=== PATIENT | female | born 1935 | race Caucasian/White ===

== ENCOUNTER 2019-09-15 12:22 | Outpatient (CLI) | payer MEDICARE, SELFPAY ==
--- NOTE | 2019-09-17 13:12 | WPDSIXMINUTE ---
Six Minute Walk Six Minute Walk: The patients O2 sats started at 91% improved to 95% during testing Total walk distance 900 feet conclusion: This patient would not benefit from home oxygen therapy
--- NOTE | 2019-09-20 21:09 | WPDSIXMINUTE ---
Six Minute Walk DATE OF SERVICE: 09/15/2019 REQUESTING PHYSICIAN: Citlali Villegas MD REASON FOR TESTING: Exertional dyspnea SIX MINUTE WALK This test was conducted per ATS guidelines. Initial saturation was 91% and pulse was 82. Saturation remained 91 to 94% while walking and increased to 96% during recovery. Pulse increased to 137 beats per minute. Distance walked was 900 feet, 274 meters. She stopped once to rest for 30 seconds. Ending heart rate was 103. IMPRESSION: No supplemental oxygen required with exertion. Heart rate remained elevated at the end of recovery. Distance walked is less than expected for age. Citlali Villegas MD
== END 2019-09-15 12:23 | disposition home or self-care (01) ==
PROVIDERS: PCP Internal Medicine; Visit Provider Internal Medicine Critical Care Medicine
DX: R06.02 Shortness of breath (principal)
CPT/HCPCS: 94618

== ENCOUNTER 2019-09-26 09:08 | Outpatient (CLI) | payer MEDICARE, SELFPAY ==
--- NOTE | 2019-10-03 02:25 | SLEEP_ITS ---
Basic Nocturnal Polysomnogram DATE OF STUDY: 09/26/2019 REASON FOR THIS STUDY: Hypersomnolence. HISTORY: This patient is an 84-year-old female, 69 inches tall, weighing 180 pounds with a body mass index of 26.6. She has sleep complaints including light sleeping, nonrestorative sleep. She wakes up frequently throughout the night. This is moderately severe and it has been going on for several years. She has a family history of sleep apnea with her daughter and son both having this. She rarely snores. She rarely has breathing problems at night witnessed by others. She occasionally sweats excessively at night. She constantly notices her heart pounding irregularly at night. She feels this mainly in her left ear, both during the day and at night. She frequently falls asleep during the day and takes power naps. She rarely falls asleep involuntarily. She does not fall asleep while driving or during physical effort. She rarely has loss of muscle tone with strong emotion. She does not have trouble during the daytime due to excessive sleepiness. She does not have paralysis on waking or falling asleep. She does not have vivid dreamlike scenes upon awakening or falling asleep. She is never afraid to go to sleep. She rarely has nightmares. She occasionally remembers her dreams. She frequently has racing thoughts. She rarely has sadness, depression, or anxiety. She frequently has muscular tension, notices parts of her body jerking occasionally, rarely kicks at night. She frequently has crawly achy feelings in the legs. She frequently has leg pain at night. She rarely has morning jaw pain. She does not grind her teeth at night. She constantly is bothered by pain during the day, frequently is awakened by pain at night, constantly wakes up feeling stiff in the morning with sore achy muscles and pain in the neck and spine. She has occasional dizziness, stomach problems, fatigue, memory problems, headaches. Bedtime is 10:30 p.m., taking 15 minutes or sometimes hours to fall asleep, typically waking 3 to 4 times at night for anywhere between 5 and 10 minutes. During this time, she use the bathroom and sometimes will go to the kitchen. She wakes up in the morning between 6 a.m. and 6:30 a.m. She estimates that she has 5 to 6 hours of sleep at night. She does take naps. A short nap is sometimes refreshing. She is tired in the morning for an hour. MEDICAL COMORBIDITIES: 1. Arthritis. 2. Pulmonary hypertension. 3. Moderate aortic regurgitation. 4. Mild emphysema. 5. Mild bronchiectasis. 6. Essential hypertension. 7. Gastroesophageal reflux disease without esophagitis. MEDICATIONS: 1. Vitamin C 1 tablet daily. 2. Levothyroxine 25 mcg daily. 3. Omeprazole 40 mg a day. 4. Lactobacillus 1 capsule daily. 5. Acetaminophen 325 one q.6 hours p.r.n. pain. 6. Acyclovir 400 mg daily. 7. Symbicort 80 mcg/4.5, 2 puffs twice a day. 8. Vitamin D3 at 1000 units daily. 9. Vitamin B12 one capsule daily. 10. Docusate 100 mg daily. 11. Nitroglycerin 0.4 mg sublingually p.r.n. chest pain. HABITS: Never smoked tobacco. Caffeine, 1 cup of coffee or 1 Coke daily. No alcohol or recreational drugs. DESCRIPTION OF THE STUDY: On the Terrell Sleepiness Scale, her score is 7. This was conducted as a basic nocturnal polysomnogram using the [employer] multiple channel system including EOG, EEG, submental EMG, EKG, nasal and oral airflow using thermistors and nasal pressure sensors, chest and abdominal belts, body position data and pulse oximetry. The study was scored using [facility] guidelines. Duration of the study was 405 minutes. Sleep time was 249.5 minutes. Sleep efficiency was low at 61.6%. Sleep latency was 16.7 minutes. REM latency was 174.5 minutes. There were 27 awakenings and she spen
== END 2019-09-26 09:09 | disposition home or self-care (01) ==
LOC: ANHCSM 09:09
PROVIDERS: PCP Internal Medicine; Visit Provider Internal Medicine Critical Care Medicine
DX: G47.10 Hypersomnia, unspecified (principal)
CPT/HCPCS: 95810

== ENCOUNTER 2019-10-21 12:50 | Outpatient (CLI) | payer MEDICARE, SELFPAY ==
--- NOTE | ~2019-10-21 | XR_ITS ---
EXAMINATION: XR lg joint inject/asp w image DATE: 10/21/2019 13:47 INDICATION: Left shoulder osteoarthritis. TECHNIQUE: A time-out was performed to verify the patient's name, date of , and procedure to b e performed. The procedure including the risks, benefits, and alternatives was discussed with the pat ient. Risks discussed included bleeding and infection. The patient understood the risks and agreed to proceed. The skin overlying the left glenohumeral joint was prepped and draped in usual sterile fas hion. Anesthetic was administered with 1% lidocaine subcutaneously. A 22 G needle was advanced unde r fluoroscopic guidance into the joint. Injection of 1 mL of Omnipaque 240 confirmed intra-articular position of the needle. Subsequently, injectate consisting of 3 mL 1% lidocaine and 1 mL 80 mg/mL D epo-Medrol was instilled. The needle was removed and the entry site was cleaned and dressed. There were no immediate complications. Fluoroscopy exposure time was 0.1 minutes. The total number of image s was 1. FINDINGS: Real-time fluoroscopy demonstrates the needle in the left glenohumeral joint. Patient's stella n prior to procedure:8/10. Patient's pain following the procedure: 0/10. IMPRESSION: 1. Left glenohumeral joint injection of local anesthetic and steroid with decrease in the patient's p resenting pain. Reviewed, dictated and finalized at location A. PROPRIETOR IMPRESSION: 1. Left glenohumeral joint injection of local anesthetic and steroid with decre ase in the patient's presenting pain.
== END 2019-10-21 12:51 | disposition home or self-care (01) ==
PROVIDERS: PCP Internal Medicine; Visit Provider Orthopaedic Surgery
DX: M13.812 Other specified arthritis, left shoulder (principal)
CPT/HCPCS: 20610; 77002; J1040; Q9966

== ENCOUNTER → 2020-03-05 12:25 | Outpatient (CLI) | payer MEDICARE, SELFPAY ==
--- NOTE | ~2020-03-05 | MM_ITS ---
EXAMINATION: MM screening [facility] BI w jocelyn HISTORY: Screening mammogram TECHNIQUE: Craniocaudal and mediolateral oblique 3-D tomosynthesis images were obtained and synthetic 2-D images were generated. CAD analysis was submitted and interpreted. COMPARISON: 09/11/2017, 05/28/2016, 09/21/2014, 09/19/1949 BREAST PARENCHYMAL COMPOSITION: There are scattered areas of fibroglandular density. FINDINGS: Scattered benign-appearing calcifications are present. There is no evidence of suspicious m ass, calcification, or architectural distortion to suggest malignancy in either breast. There has bee n no suspicious interval change. IMPRESSION: 1. No mammographic evidence of malignancy. 2. Recommend routine screening mammography while the patient remains in good health. BI-RADS Category 2: Benign finding(s). Reviewed, dictated and finalized at location A. IMPRESSION: 1. No mammographic evidence of malignancy. 2. Recommend routine screening mammography while the patient remains in good he alth. BI-RADS Category 2: Benign finding(s).
== END ==
PROVIDERS: PCP Internal Medicine; Visit Provider Internal Medicine
DX: Z12.31 Encounter for screening mammogram for malignant neoplasm of breast (principal)
CPT/HCPCS: 77063; 77067

== ENCOUNTER 2020-10-08 08:51 | Outpatient (CLI) | payer MEDICARE, SELFPAY ==
--- NOTE | ~2020-10-08 | CT_ITS ---
EXAMINATION: CT diagnostic chest wo con DATE: 10/08/2020 09:09 INDICATION: Pulmonary hypertension, unspecified TECHNIQUE: Computed tomography (CT) of the chest was performed without intravenous contrast. The dose -length product (DLP) was 218.13 mGy-cm. Automated exposure control and iterative reconstruction tech [email or web address] were employed. COMPARISON: 06/20/2019 FINDINGS: There is mild emphysema. The lungs are free of acute opacities. There is no pleural effusio n or pneumothorax. There is enlargement of the main and central pulmonary arteries, consistent with p ulmonary hypertension. No pathologically enlarged thoracic lymph nodes are identified. The heart size is normal. Calcified coronary artery atherosclerosis is noted. There is mild thoracic spondylosis. T here is hydronephrosis of the partially imaged right kidney. IMPRESSION: 1. Findings consistent with pulmonary hypertension. 2. Mild emphysema. 3. Hydronephrosis of the partially imaged right kidney of unclear etiology. Reviewed, dictated and finalized at location A. UNITY LIAISON OFFICER
--- NOTE | 2020-10-15 12:45 | WPDPFTINT ---
PFT Interpretation This is a pulmonary function test with pre and post-bronchodilator spirometry, plethysmography and diffusing capacity. The test was performed and results interpreted in accordance with the 2019 and 2005 ATS/ERS Task Force guidelines respectively using the Cooper/Jovita reference equations. Findings: Spirometry: The contour the inspiratory and expiratory flow tracing are normal. The pre bronchodilator FVC is 3.07 L, 99% predicted. The pre bronchodilator FEV1 is 2.20 L, 103% predicted. The FEV1: FVC ratio is 72%. The post bronchodilator FVC is 2.98 L, representing a 3% decrease. The post bronchodilator FEV1 is 2.21 L, representing a 1% increase. Plethysmography: The total lung capacity is 5.97 L, 104% predicted. The forced vital capacity is 4.05 L, 128% predicted. The residual volume is 2.90 L, 118% predicted. Diffusing capacity the absolute diffusion capacity is 14.4, 67% predicted. The diffusing capacity corrected for alveolar volume is 3.91, 119% predicted. Impression: The spirometry is normal without evidence of an obstructive abnormality. There is no significant improvement after inhaling a single dose of albuterol. The lung volumes are normal. The diffusing capacity is normal. There are no prior studies for comparison
== END 2020-10-08 08:52 | disposition home or self-care (01) ==
PROVIDERS: PCP Internal Medicine; Visit Provider Nurse Practitioner Family
DX: I27.20 Pulmonary hypertension, unspecified (principal); J43.9 Emphysema, unspecified; R06.02 Shortness of breath
CPT/HCPCS: 71250; 94060; 94726; 94729

== ENCOUNTER 2020-10-15 09:51 | Outpatient (CLI) | payer MEDICARE, SELFPAY ==
[2020-10-15 10:24] LABS: Add Urine Microscopic? NO; Appearance Urine Clear (Clear); Bilirubin Urine Negative (Negative); Blood Urine Negative (Negative); Color Urine Colorless (Yellow); Glucose Urine UA Negative (Negative); Ketones Urine Negative (Negative); Leukocyte Esterase Ur Negative LEU/UL (NEGATIVE); Nitrate Urine Negative (Negative); Protein Urine Negative (Negative); Specific Grav Ur 1.005 (1.001-1.035); Urobilinogen Urine Negative mg/dL (<2.0)
== END 2020-10-15 09:52 | disposition home or self-care (01) ==
LOC: ANHLAB 09:54
PROVIDERS: PCP Internal Medicine; Visit Provider Physician Assistant
DX: R30.0 Dysuria (principal)
CPT/HCPCS: 81003; 87086

== ENCOUNTER → 2020-10-17 10:14 | Outpatient (CLI) | payer MEDICARE, SELFPAY ==
--- NOTE | ~2020-10-17 | CT_ITS ---
EXAMINATION: CT brain wo con EXAM DATE: 10/17/2020 10:53 INDICATION: Left-sided headache, left ear pain. TECHNIQUE: Spiral CT of the head was performed without contrast. Axial, coronal and sagittal images were reviewed. The dose-length product (DLP) for this examination was 599.57 mGy-cm. The exposure w as tailored according to patient size, and iterative reconstruction (ASIR) was used as additional dos e reduction technique. There is no prior study for comparison. FINDINGS: Diffuse sinus wall thickening indicating chronic sinusitis, with an air fluid in the left m axillary sinus and right sphenoid sinus. Anterior ethmoid sinuses, frontal sinuses and right maxillar y sinus appear completely opacified. Consider possibility of acute on chronic sinusitis. Mastoid air cells and middle ears are well aerated. Congenital cavum septum and cavum vergae. There is no acute intraparenchymal hemorrhage. No evidence of intraparenchymal brain mass lesion. No evidence of acute infarction. Please note that initial h ead CT has limited sensitivity for small or acute infarctions. 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 There is mild periventricular and subcortical hypodensity, nonspecific but probab ly related to small vessel ischemic disease. There is mild prominence of the sulci and ventricles r elated to cerebral atrophy. There is intracranial carotid arteriosclerosis. There are no extra-axi al collections. There is no mass effect or midline shift. Patient has had left-sided ocular lens fair rgery. Soft tissue is unremarkable. IMPRESSION: 1. No acute intracranial findings. 2. Chronic age related findings. 3. Extensive sinus disease, could be acute on chronic. Reviewed, dictated and finalized at location B. IFIED PEDORTHOTIST
--- NOTE | ~2020-10-17 | CT_ITS ---
EXAMINATION: CT abdomen pelvis w con DATE: 10/17/2020 10:53 INDICATION: Hydronephrosis TECHNIQUE: Computed tomography (CT) of the abdomen and pelvis was performed with 100 cc Omnipaque 350 intravenous contrast. Automated exposure control and iterative reconstruction technique were employe d. Exam dose: 857.08 mGy-cm total exam DLP. COMPARISON: 07/09/2011 CT abdomen pelvis FINDINGS: There is minimal bilateral lower lobe dependent atelectasis. No pulmonary consolidation in the lower lung zones. Heart size is within upper limits of normal. No pericardial or pleural effusion. Status post cholecystectomy, which may account for stable prominence of the intrahepatic and extrahep atic bile duct since 06/29/2011. No hepatic, splenic, pancreatic or adrenal space-occupying mass lesion. Scattered bilateral renal cysts, measuring up to approximately 11 mm maximal dimension on each side. There is moderate prominence of the extrarenal pelves bilaterally. No hydroureteronephrosis. There is extensive streak artifact from bilateral hip replacements, limiting evaluation of the urinar y bladder and other pelvic structures. Normal caliber of the abdominal aorta, without evidence of aneurysm. There is extensive abdominal aor tic and bilateral renal artery calcification. No intraperitoneal or retroperitoneal or pelvic mass le baltazar or adenopathy or ascites is evident within the limits the examination with the extensive streak artifact in the pelvic area. Small sliding hiatal hernia. There are numerous diverticula of the sigmoid and descending colon as well as ascending colon. No CT evidence of diverticulitis is noted. No bowel obstruction, bowel wall thickening, pneumatosis or intr aperitoneal free air is evident. Small fat-containing umbilical hernia. Status post hysterectomy. Severe multilevel degenerative disc disease of the lumbar spine. No suspicious osteolytic or osteoblastic lesions are noted. IMPRESSION: Moderate prominence of the renal pelves; no apparent urinary tract obstruction Bilateral renal cysts Status post cholecystectomy Status post hysterectomy Small sliding hiatal hernia Diverticulosis of left and right colon Reviewed, dictated and finalized at Location A. Reviewed, dictated and finalized at location A. R PLANT SUPERINTENDENT
[2020-10-17 10:38] LABS: Estimated Glomerular Filt Rate > 60
== END ==
PROVIDERS: PCP Internal Medicine; Visit Provider Physician Assistant
DX: N13.30 Unspecified hydronephrosis (principal); N28.1 Cyst of kidney, acquired; Z90.49 Acquired absence of other specified parts of digestive tract; K44.9 Diaphragmatic hernia without obstruction or gangrene; K57.30 Diverticulosis of large intestine without perforation or abscess without bleeding; R93.0 Abnormal findings on diagnostic imaging of skull and head, not elsewhere classified
CPT/HCPCS: 70450; 74177; Q9967

== ENCOUNTER 2020-11-27 09:30 | Outpatient (CLI) | payer MEDICARE, SELFPAY ==
--- NOTE | ~2020-11-27 | CT_ITS ---
EXAMINATION: CT sinus wo con EXAM DATE: 11/27/2020 09:42 INDICATION: R44.8 - Other symptoms and signs involving general sensations and perceptions. History of chronic sinusitis. TECHNIQUE: Spiral CT of the sinuses was acquired in the axial plane. Coronal and sagittal reformatte d images were also reviewed. The dose-length product (DLP) for this examination was 295.93 mGy-cm. Iterative reconstruction (ASIR) was used as dose reduction technique. Comparison is made to prior exa mination from 07/20/2017. FINDINGS: The sinuses are normally developed. Completely opacified right maxillary sinus from muco periosteal disease and also large amount of layering fluid. Smaller amount of left maxillary sinus fl uid. There is bilateral maxillary sinus wall thickening indicating this is chronic. Small amount of b ilateral frontal and sphenoid mucoperiosteal thickening, small to moderate in the ethmoid sinuses. Th ere may have been prior surgical changes from middle turbinectomies and ethmoidectomies. Overall, maurilio earance is not significantly changed compared to 2017. Uncertain whether or not there have been maxil yadiel sinus window procedures, but the apparent left ostiomeatal unit is patent. Wall thickening of th e sphenoid sinuses indicating a history of being chronically opacified. There is no significant nasal septal deviation. The mastoid air cells and middle ears are well aerated. External auditory canal s are patent. Left-sided cataract surgery. IMPRESSION: 1. Right maxillary sinus almost completely opacified, smaller amount of opacity in other sinuses. 2. No significant interval change. Reviewed, dictated and finalized at location A. IMPRESSION: 1. Right maxillary sinus almost completely opacified, smaller amount of opacit y in other sinuses. 2. No significant interval change.
== END 2020-11-27 09:31 | disposition home or self-care (01) ==
PROVIDERS: PCP Internal Medicine; Visit Provider Otolaryngology
DX: R44.8 Other symptoms and signs involving general sensations and perceptions (principal); J01.90 Acute sinusitis, unspecified
CPT/HCPCS: 70486

== ENCOUNTER 2021-01-04 21:16 | Emergency (ER) | payer MEDICARE, SELFPAY ==
--- NOTE | ~2021-01-04 | XR_ITS ---
XR lumbar spine min 4V DATE: 01/05/2021 00:19 INDICATION: Fall. Right and mid lower back pain TECHNIQUE: AP, lateral, coned lateral lumbosacral and bilateral oblique views COMPARISON: 09/12/2011 MRI lumbar spine examination FINDINGS: Diffuse osteopenia. Mild lumbar scoliosis. Moderately severe degenerative disease at L1 to and severe degenerative disc disease throughout the r emainder of the lumbar and sacral spine. No fracture or bone destruction is evident. There is degenerative change at the facet joints but no a pparent spondylolysis or spondylolisthesis. The sacroiliac joints are intact. IMPRESSION: Severe degenerative disc disease Osteopenia Scoliosis No fracture or bone destruction Reviewed, dictated and finalized at location A.
[2021-01-04 22:24] VITALS: BP 162/87; PULSE 109; RESP 12; TEMP 36.5; O2SAT 97
--- NOTE | 2021-01-05 01:53 | ED.GENADULT ---
HPI - General Adult General Chief complaint: Fall Stated complaint: Fall/Back Pain Time Seen by Provider: 01/05/21 01:38 History of Present Illness HPI narrative: Patient 85-year-old female presents to emergency department with chief complaint of right sided flank pain. Patient reports that she was adjusting some venetian blinds lost her footing and fell striking her right flank/low chest area against the frame of a bay window. The patient reports she had no loss of consciousness reports that she has pain in her posterior ribs and hurts whenever she takes a deep breath and when she moves around. The patient states she is concerned that she may have a rib fracture. The patient denies any focal neurological deficit denies any paresthesias denies bowel or bladder dysfunction. Patient reports that her back chronically hurts and is not any more than normal at this time the only location that is hurting is in her flank area. Related Data Home Medications Medication Instructions Recorded Confirmed ascorbic acid (vitamin C) 500 mg 500 mg PO DAILY 09/05/19 12/20/20 tablet Lactobacillus acidophilus 10 cell PO 09/06/19 12/20/20 billion cell capsule acetaminophen 325 mg tablet 325 mg PO Q6H PRN 09/06/19 12/20/20 acyclovir 400 mg tablet 400 mg PO DAILY 09/06/19 12/20/20 cholecalciferol (vitamin D3) 25 1,000 unit PO DAILY 09/06/19 12/20/20 mcg (1,000 unit) capsule cyanocobalamin (vitamin B-12) 500 500 mcg PO DAILY 09/06/19 12/20/20 mcg tablet nitroglycerin 0.4 mg sublingual 0.4 mg SUBLINGUAL Q5M PRN 09/06/19 12/20/20 tablet Allergies Allergy/AdvReac Type Severity Reaction Status Date / Time latex Allergy Severe RASH Verified 01/05/21 02:04 levofloxacin Allergy Intermediate stomach Verified 01/05/21 02:04 cramp cephalexin Allergy Unknown unk Verified 01/05/21 02:04 ciprofloxacin Allergy Unknown unk Verified 01/05/21 02:04 Review of Systems Review of Systems: Narrative: A 10 system review of systems was completed on the patient and is negative except for what is stated in the HPI. Nursing and ancillary documentation was reviewed. [facility] Past Medical History Medical History (Updated 01/05/21 @ 02:36 by Luis Thomas MD) Arthritis Essential (primary) hypertension Gastric erosion determined by endoscopy Gastro-esophageal reflux disease without esophagitis Surgical History Surgical History H/O: hysterectomy History of knee replacement History of sinus surgery Hx of cholecystectomy Family History Family History Mother Cerebrovascular accident, Onset Age: 86 Patient's mother is Father Diabetes mellitus Hypertension Heart disease Sibling Cancer Heart disease Cerebrovascular accident Other Cancer Grandparent Cancer Other Acute myocardial infarction Social History Social History Smoking status: Never smoker Second hand tobacco smoke exposure: No Alcohol intake: current Gender identity (if verbalized by the patient): Female Exam Narrative: Exam Narrative: GENERAL: Well-appearing, well-nourished, and in no acute distress. HEAD: Normocephalic, atraumatic. EYES: PERRLA and EOMI. ENT: Nares clear, no rhinorrhea or epistaxis. Mucous membranes moist. NECK: Supple. CHEST: Clear to auscultation. No respiratory distress. HEART: Regular rate and rhythm. No murmur heard. Normal peripheral pulses. ABDOMEN: Soft, nontender, nondistended, normal active bowel sounds. There is a small proximately 4 inch diameter area in the right flank area that shows evidence of contusion EXTREMITIES: Normal range of motion. No edema. SKIN: Warm, dry, no rash. NEURO: No focal deficits. Alert and oriented x3. PSYCH: Normal mood and affect. Course Vital Signs Vital signs: Vital Signs
[2021-01-05 02:01] VITALS: BP 147/67; PULSE 88; RESP 18; O2SAT 92
[2021-01-05] MEDS: HYDROcodone/acetaminophen (*CRX) 5-325 MG TABLET 1 TAB PO (02:06)
[2021-01-05 03:01] VITALS: BP 145/61; PULSE 83; RESP 17; O2SAT 95
== END 2021-01-05 03:03 | disposition home or self-care (01) ==
PROVIDERS: Emergency Provider Emergency Medicine; PCP Internal Medicine
DX: S20.211A Contusion of right front wall of thorax, initial encounter (principal); M19.90 Unspecified osteoarthritis, unspecified site; I10 Essential (primary) hypertension; K21.9 Gastro-esophageal reflux disease without esophagitis; Z96.659 Presence of unspecified artificial knee joint; K22.10 Ulcer of esophagus without bleeding; W01.198A Fall on same level from slipping, tripping and stumbling with subsequent striking against other object, initial encounter
CPT/HCPCS: 72110; 99283; A9270

== ENCOUNTER → 2021-04-26 15:35 | Outpatient (CLI) | payer MEDICARE, SELFPAY ==
--- NOTE | ~2021-04-26 | MM_ITS ---
EXAMINATION: MM screening [facility] BI w jocelyn HISTORY: Screening TECHNIQUE: Craniocaudal and mediolateral oblique 3-D tomosynthesis images were obtained and synthetic 2-D images were generated. CAD analysis was submitted and interpreted. COMPARISON: Comparison to multiple prior studies sequentially, with oldest reviewed study dated 12/2012. BREAST PARENCHYMAL COMPOSITION: There are scattered areas of fibroglandular density. FINDINGS: There is no evidence of suspicious mass, calcification, or architectural distortion to sugg est malignancy in either breast. There has been no suspicious interval change. IMPRESSION: 1. No mammographic evidence of malignancy. 2. Recommend routine screening mammography in one year. BI-RADS Category 1: Negative Reviewed, dictated and finalized at location A.
== END ==
PROVIDERS: PCP Internal Medicine; Visit Provider Internal Medicine
DX: Z12.31 Encounter for screening mammogram for malignant neoplasm of breast (principal)
CPT/HCPCS: 77063; 77067

== ENCOUNTER 2021-10-30 07:59 | Outpatient (CLI) | payer MEDICARE, SELFPAY ==
--- NOTE | ~2021-10-30 | CT_ITS ---
EXAMINATION: CT shoulder LT wo con DATE: 10/30/2021 08:23 INDICATION: Primary osteoarthritis, left shoulder. TECHNIQUE: Computed tomography (CT) of the left shoulder was performed without intravenous contrast. Automated exposure control and iterative reconstruction technique were employed. The dose-length prod uct was 487.92 mGy-cm. COMPARISON: None FINDINGS: Bone alignment is normal. No fracture. There is severe osteoarthritis of acromioclavicular joint and glenohumeral joint. There is a moderate-sized glenohumeral joint effusion with loose bodies . There is mild fatty atrophy of supraspinatus muscle belly. IMPRESSION: 1. Severe polyarticular osteoarthritis. 2. Moderate-sized glenohumeral joint effusion with loose bodies. Reviewed, dictated and finalized at location A. H MOSS OPERATOR
== END 2021-10-30 08:00 | disposition home or self-care (01) ==
PROVIDERS: PCP Internal Medicine; Visit Provider Orthopaedic Surgery
DX: M19.012 Primary osteoarthritis, left shoulder (principal); M24.012 Loose body in left shoulder
CPT/HCPCS: 73200

== ENCOUNTER 2021-12-04 08:06 | Outpatient (CLI) | payer MEDICARE, SELFPAY ==
--- NOTE | 2021-12-04 09:17 | ECG_ITS ---
Measurements Intervals [place] Rate: 66 P: 65 OR: 176 QRS: 8 QRSD: 88 T: 43 QT: 405 QTc: 426 Interpretive Statements SINUS RHYTHM WARNING: DATA QUALITY MAY AFFECT INTERPRETATION ABNORMAL ECG INTERPRETATION BASED ON A DEFAULT AGE OF 40 YEARS NO PREVIOUS ECG AVAILABLE FOR COMPARISON Electronically Signed On 12-04-2021 15:51:42 CDT by Salty Farah M.D.
[2021-12-04 09:52] LABS: Basophils Percent Auto 0.6 % (0.2-1.2); Eosinophils Absolute Auto 0.1 K/mm3 (0-0.3); Eosinophils Percent Auto 2.3 % (0-4.4); Hematocrit 46.6 % (37.0-47.0); Hemoglobin 15.1 g/dL (12.0-15.0); Immature Granulocyte Absolute 0.02 K/mm3 (0.00-0.031); Immature Granulocyte Percent A 0.4 % (0-0.5); Lymphocytes Absolute Auto 1.36 K/mm3 (0.9-3.2); Lymphocytes Percent Auto 28.7 % (18.3-44.2); Mean Corpuscular HGB Conc 32.4 g/dl (32-36); Mean Corpuscular Hemoglobin 30.6 pg (26-34); Mean Corpuscular Volume 94.3 fl (80-100); Mean Platelet Volume 9.6 fl (7.4-10.4); Monocytes Absolute Auto 0.5 K/mm3 (0.1-0.6); Neutrophils Absolute Auto 2.7 K/mm3 (1.3-6.7); Platelet Count Result 228 k/mm3 (150-375); Red Blood Count 4.94 M/mm3 (4.2-5.4); Red Cell Distribution Width 13.2 % (11.5-14.5); White Blood Count 4.7 K/mm3 (4.5-10.0)
== END 2021-12-04 08:07 | disposition home or self-care (01) ==
LOC: ANHSURGERY 08:10
PROVIDERS: PCP Internal Medicine; Visit Provider Orthopaedic Surgery
DX: Z01.818 Encounter for other preprocedural examination (principal); M19.012 Primary osteoarthritis, left shoulder; I10 Essential (primary) hypertension
CPT/HCPCS: 36415; 85025; 87081; 93005

== ENCOUNTER → 2022-08-20 12:43 | Outpatient (CLI) | payer MEDICARE, SELFPAY ==
--- NOTE | ~2022-08-20 | MM_ITS ---
EXAMINATION: MM screening jitendra BI w jocelyn HISTORY: Screening mammogram TECHNIQUE: Craniocaudal and mediolateral oblique 3-D tomosynthesis images were obtained and synthetic 2-D images were generated. CAD analysis was submitted and interpreted. COMPARISON: 04/26/2021, 03/05/2020, 09/11/2017 lateral screening mammogram examinations BREAST PARENCHYMAL COMPOSITION: There are scattered areas of fibroglandular density. FINDINGS: Occasional benign calcifications. There is no evidence of suspicious mass, calcification, o r architectural distortion to suggest malignancy in either breast. There has been no suspicious inter mamie change. IMPRESSION: 1. No mammographic evidence of malignancy. 2. Recommend routine screening mammography in one year. BI-RADS Category 1: Negative Reviewed, dictated and finalized at location A. NG INSPECTOR
== END ==
PROVIDERS: PCP Internal Medicine; Visit Provider Internal Medicine
DX: Z12.31 Encounter for screening mammogram for malignant neoplasm of breast (principal)
CPT/HCPCS: 77063; 77067

== ENCOUNTER 2022-08-22 11:15 | Outpatient (RCR) | payer MEDICARE, SELFPAY ==
--- NOTE | 2022-07-31 16:09 | PTOPEVAL1 ---
Assessment and note entered by Cesilia Lynch, PT Evaluation Information Assessment Status Evaluation Diagnosis gait abnormality Onset December 2021 Subjective Information chronic pain in R knee since TKR, then fell in December onto knee and more pain in knee and problems walking; have had R and L THR and R and L TKR's; use wheeled walker in the house and for distances when going out and cane for short distances going out; only 1 recent fall in December; do not do any leg exercises at home; standing and activity in kitchen about 30 min, then sit and rest; have a fear of falling; have problems with turning around when standing--hard to to do and feel like going to fall; GOAL for therapy--walk better Reported Pain Level Pain Score Self Report R leg Additional Pain Score Comments pain range of 2-9/10; increase pain with sleeping- -usually sleep on her side; educated on use of pillow between legs to maintain posture of hips/ knees; decrease pain with change position, walking; take over the counter meds PRN,ice; educated on use of heat PRN; no pain in L leg; 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 Her history includes R and L TKR, R and L THR. She has had 1 fall recently and has a fear of falling and problems with turning around when standing. She does not do any leg exercises and uses a cane or wheeled walker. There are reports of pain in her R hip and knee. With the evaluation, she has weakness of trunk, R and L legs; poor standing & walking posture and tolerance of about 30 seconds; decreased 5 reps sit/stand time, TUG time and 2 minute walking test is 150' with one rest break. Skilled PT services are indicated for therapeutic exercises to increase R and L LE strength, gait and balance skills and safety, with education for home exercises. Plan of Care Interventions Hot Pack/Cold Pack,Neuro Re-education,Patient/ Caregiver Education,Therapeutic Activities, Therapeutic Exercise PT Services Indicated Yes Treatment Frequency and 2x/wk for 5 weeks Duration
--- NOTE | 2022-08-26 11:36 | PCPTNOTE ---
PHYSICAL THERAPY DISCHARGE REPORT 08-26-22 Attending Provider: Aditya Collier MD Patient:Marion Camarena Date of :1935 Marion called today and canceled all of her scheduled PT appointments, stated her son was going on Hospice. Therefore, she will be discharged at this time. She has received 5 PT sessions from July 31 to for the diagnosis of gait abnormality. The goals were not assessed. Thank you for referring Mrs. Camarena to [facility].
== END 2022-08-26 13:40 | disposition home or self-care (01) ==
LOC: ANHPT 11:15
PROVIDERS: PCP Internal Medicine; Visit Provider Orthopaedic Surgery
DX: R26.9 Unspecified abnormalities of gait and mobility (principal)
CPT/HCPCS: 97110; 97112; 97116; 97162; 97530

== ENCOUNTER 2022-12-18 08:14 | Outpatient (CLI) | payer MEDICARE, SELFPAY ==
--- NOTE | ~2022-12-18 | US_ITS ---
EXAMINATION: US art doppler w press LE BI DATE: 12/18/2022 09:58 INDICATION: Mixed hyperlipidemia TECHNIQUE: Segmental pressures and plethysmographic and Doppler waveforms of the brachial and lower e xtremity arteries were obtained. COMPARISON: None. FINDINGS: Right and left brachial artery pressures of 156 mm Hg and 159 mm Hg, respectively, are concordant (no rmal difference <= 30 mmHg). The high thigh pressure index is 1.21 (normal > 1.2). The right high thi gh pressure index was unable to be obtained due to inability to occlude the vessel at the high right thigh. The right ankle-brachial index (AUDREY) is 1.13 (normal >= 0.9-1). The right great toe-brachial index (T BI) is 0.38 (normal >= 0.6-0.8). The right lower extremity segmental pressure gradients are normal (n ormal gradients <= 20-30 mmHg between adjacent levels on the same leg or the same levels on the two l egs). Arterial waveforms are biphasic with brisk systolic upstrokes throughout the arteries of the ri ght lower limb. The left AUDREY is 1.16. The left TBI is 0.58. The left lower extremity segmental pressure gradients are normal. Arterial waveforms are biphasic with brisk systolic upstrokes throughout the arteries of the left lower limb. IMPRESSION: 1. Mild arterial occlusive disease to the bilateral lower limbs with normal bilateral ABIs but mildly decreased left and mild to moderately decreased right TBIs. Reviewed, dictated and finalized at location A. IMPRESSION: 1. Mild arterial occlusive disease to the bilateral lower limbs with normal jeremie ateral ABIs but mildly decreased left and mild to moderately decreased right TB Is.
== END 2022-12-18 08:15 | disposition home or self-care (01) ==
PROVIDERS: PCP Internal Medicine; Visit Provider Internal Medicine Cardiovascular Disease
DX: I70.201 Unspecified atherosclerosis of native arteries of extremities, right leg (principal); I70.202 Unspecified atherosclerosis of native arteries of extremities, left leg; M79.604 Pain in right leg; E78.2 Mixed hyperlipidemia; I10 Essential (primary) hypertension; R09.89 Other specified symptoms and signs involving the circulatory and respiratory systems
CPT/HCPCS: 93923

== ENCOUNTER 2023-08-31 11:57 | Outpatient (CLI) | payer MEDICARE, SELFPAY ==
[2023-08-31 13:35] LABS: Basophils Absolute Auto 0.1 K/mm3 (0.0-0.1); Basophils Percent Auto 0.9 % (0.2-1.2); Eosinophils Absolute Auto 0.2 K/mm3 (0-0.3); Eosinophils Percent Auto 2.8 % (0-4.4); Hematocrit 44.2 % (37.0-47.0); Immature Granulocyte Absolute 0.01 K/mm3 (0.00-0.031); Immature Granulocyte Percent A 0.2 % (0-0.5); Lymphocytes Absolute Auto 1.26 K/mm3 (0.9-3.2); Lymphocytes Percent Auto 19.9 % (18.3-44.2); Mean Corpuscular HGB Conc 31.7 g/dl (32-36); Mean Corpuscular Volume 94.8 fl (80-100); Mean Platelet Volume 9.7 fl (7.4-10.4); Monocytes Absolute Auto 0.5 K/mm3 (0.1-0.6); Monocytes Percent Auto 7.8 % (2.6-8.5); Neutrophils Absolute Auto 4.3 K/mm3 (1.3-6.7); Neutrophils Percent Auto 68.4 % (45.5-73.1); Platelet Count Result 225 k/mm3 (150-375); Red Blood Count 4.66 M/mm3 (4.2-5.4); Red Cell Distribution Width 13.1 % (11.5-14.5); White Blood Count 6.3 K/mm3 (4.5-10.0)
== END 2023-08-31 11:58 | disposition home or self-care (01) ==
LOC: ANHSURGERY 12:01
PROVIDERS: PCP Internal Medicine; Visit Provider Orthopaedic Surgery
DX: M19.012 Primary osteoarthritis, left shoulder (principal); Z01.818 Encounter for other preprocedural examination
CPT/HCPCS: 36415; 85025; 87081

== ENCOUNTER 2023-12-11 10:30 | Outpatient (CLI) | payer MEDICARE, SELFPAY ==
[2023-12-11 11:04] LABS: Basophils Percent Auto 0.5 % (0.2-1.2); Eosinophils Absolute Auto 0.1 K/mm3 (0-0.3); Eosinophils Percent Auto 1.8 % (0-4.4); Hematocrit 46.4 % (37.0-47.0); Hemoglobin 15.3 g/dL (12.0-15.0); Immature Granulocyte Absolute 0.02 K/mm3 (0.00-0.031); Immature Granulocyte Percent A 0.4 % (0-0.5); Lymphocytes Absolute Auto 1.22 K/mm3 (0.9-3.2); Lymphocytes Percent Auto 21.7 % (18.3-44.2); Mean Corpuscular Hemoglobin 30.9 pg (26-34); Mean Corpuscular Volume 93.7 fl (80-100); Mean Platelet Volume 9.6 fl (7.4-10.4); Monocytes Absolute Auto 0.5 K/mm3 (0.1-0.6); Monocytes Percent Auto 9.3 % (2.6-8.5); Neutrophils Absolute Auto 3.7 K/mm3 (1.3-6.7); Neutrophils Percent Auto 66.3 % (45.5-73.1); Platelet Count Result 237 k/mm3 (150-375); Red Blood Count 4.95 M/mm3 (4.2-5.4); Red Cell Distribution Width 13.6 % (11.5-14.5); White Blood Count 5.6 K/mm3 (4.5-10.0)
[2023-12-11 12:16] LABS: MRSA (PCR) NOT DETECTED (NOT DETECTE)
== END 2023-12-11 10:31 | disposition home or self-care (01) ==
PROVIDERS: PCP Internal Medicine; Visit Provider Orthopaedic Surgery
DX: Z01.818 Encounter for other preprocedural examination (principal); M19.012 Primary osteoarthritis, left shoulder
CPT/HCPCS: 36415; 85025; 86850; 86900; 86901; 87641

== ENCOUNTER 2023-12-16 14:39 | Observation (INO) | payer MEDICARE, SELFPAY ==
[2023-08-31 12:07] VITALS: BMI 28.5
--- NOTE | 2023-08-31 12:37 | PC.NURSE ---
Report to the Outpatient Waiting Room, entrance under the green pavilion located off [facility], at time _0600 on date __09/22/23 . Planned Procedure Time: _0730 . Time changes happen often and if your time is changed the preop area will call you the afternoon before. - You and your visitor will be asked to self-screen and do not enter if you have any COVID symptoms. - A mask is optional within the hospital at this time. Patients may have clear liquids (water, carbonated beverages, clear teas, apple juice) until 3 hours prior to surgery( 4:30 AM ) with a maximum of 20 ounces. - No food from midnight until time of surgery - Infants may have breast milk until 4 hours before surgery, infant formula 6 hours prior to surgery. - Children will be allowed to drink immediately following surgery. If applicable, please bring a bottle or sippy cup to assist with drinking. Juice, water, soda, and popsicles are readily available. For infants on formula, please bring formula the day of surgery. Pacifiers are allowed. Take the following medications with a SIP of water the morning of surgery: ___ACYCLOVIR,SYMBICORT INHALER,GABAPENTIN,LEVOTHYROXINE,SERTRALINE DO NOT STOP ANY OF YOUR OTHER PRESCRIPTION MEDICATIONS PRIOR TO SURGERY ?EXCEPT THE FOLLOWING Medications to discontinue per physician __HOLD ASPIRIN AND ALEVE 7 DAYS PRE OP PER DR VEGA_LAST DOSE 09/14/23 ALL VITAMINS AND SUPPLEMENTS 3 DAYS PRE OP.LAST DOSE 09/18/23 Please no make-up, nail slovak, hairspray, perfume, deodorant, or body powder the day of surgery. No jewelry (including any body piercings) or valuables the day of surgery, leave them at home. Please take a shower or bath the night before, or the morning of, surgery with an antibacterial soap. Wear comfortable, loose fitting clothing. Children are encouraged to wear pajamas. - Jewelry must be removed prior to entering the operating room. Rings and piercings that are not removed may be cut off. - The hospital will not accept responsibility for valuables. - Please leave all valuables, including medications, at home the day of surgery. If you are going home after surgery, a licensed tractor trailer driver must drive you home. - NO public transportation without another adult if you receive anesthesia. - We recommend that an adult stay with you for 24 hours following discharge. - We also recommend that you do not drive, make important decision, drink alcoholic beverages, or take any drugs that were not prescribed by your health care provider for at least 24 hours after your discharge time. For Pediatric surgeries, we recommend two adults accompany the child home. Follow any additional instructions given to you from your surgeon. If you or anyone in your household have experienced Covid symptoms in the past week, please notify your surgeon or the nurse liaison at the phone number below for possible testing. VERBAL AND WRITTEN instructions given to _PATIENT AND SPOUSE DUANE and asked if any additional questions and then verbalized understanding. Patient advised to call surgeon office or pre surgery nurse liaison [phone] if any additional questions.
[2023-08-31 13:08] VITALS: BP 155/67; PULSE 80; RESP 18; TEMP 36.8; O2SAT 96
[2023-12-10 09:41] VITALS: BMI 27.7
--- NOTE | 2023-12-10 10:01 | PC.NURSE ---
Report to the Outpatient Waiting Room, entrance under the green pavilion located off [facility], at time __6:00AM on date ___12/15/23____. Planned Procedure Time: __7:30AM . Time changes happen often and if your time is changed the preop area will call you the afternoon before. - You and your visitor will be asked to self-screen and do not enter if you have any COVID symptoms. - A mask is optional within the hospital at this time. Patients may have clear liquids (water, carbonated beverages, clear teas, apple juice) until 3 hours prior to surgery with a maximum of 20 ounces. - No food from midnight until time of surgery. Take the following medications with a SIP of water the morning of surgery: ___TRELEGY ELLIPTA INHALER, ACYCLOVIR, LEVOTHYROXINE & SERTRALINE. MAY TAKE GABAPENTIN AND USE ALBUTEROL INHALER NEEDED. DO NOT STOP ANY OF YOUR OTHER PRESCRIPTION MEDICATIONS PRIOR TO SURGERY ?EXCEPT THE FOLLOWING Medications to discontinue per physician __HOLD ASPIRIN & NAPROSEN 7 DAYS PRE-OP PER DR VEGA- LAST DOSE 12/07/23.__ HOLD ALL VITAMINS/SUPPLEMENTS 3 DAYS PRE-OP PER ANESTHESIA- LAST DOSE 12/11/23 Please no make-up, nail uzbek, hairspray, perfume, deodorant, or body powder the day of surgery. No jewelry (including any body piercings) or valuables the day of surgery, leave them at home. Please take a shower or bath the night before, or the morning of, surgery with an antibacterial soap. Wear comfortable, loose fitting clothing. - Jewelry must be removed prior to entering the operating room. Rings and piercings that are not removed may be cut off. - The hospital will not accept responsibility for valuables. - Please leave all valuables, including medications, at home the day of surgery. If you are going home after surgery, a licensed certified driver examiner must drive you home. - NO public transportation without another adult if you receive anesthesia. - We recommend that an adult stay with you for 24 hours following discharge. - We also recommend that you do not drive, make important decision, drink alcoholic beverages, or take any drugs that were not prescribed by your health care provider for at least 24 hours after your discharge time. Follow any additional instructions given to you from your surgeon. If you or anyone in your household have experienced Covid symptoms in the past week, please notify your surgeon or the nurse liaison at the phone number below for possible testing. Telephone instructions given to ___PATIENT and asked if any additional questions and then verbalized understanding. Patient advised to call surgeon office or pre surgery nurse liaison [phone] if any additional questions.
[2023-12-15] VITALS (14 sets, daily range): BP systolic 127–160; BP diastolic 60–70; PULSE 83–98; RESP 12–20; TEMP 35.6–37.1; O2SAT 92–100
--- NOTE | 2023-12-15 06:45 | WPDANESEPPF ---
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 Patient Data Age: 88 Gender: F Height: 1.74 m Weight: 84 kg Last Vital Signs Temp 98.3 F 08/31/23 13:08 Pulse 80 08/31/23 13:08 Resp 18 08/31/23 13:08 BP 155/67 H 08/31/23 13:08 Pulse Ox 96 08/31/23 13:08 O2 Del Method Room Air 08/31/23 13:08 Allergies Allergy/AdvReac Type Severity Reaction Status Date / Time latex Allergy Severe RASH Verified 12/15/23 06:29 levofloxacin AdvReac Intermediate stomach Verified 12/15/23 06:29 cramp cephalexin AdvReac Unknown STOMACH Verified 12/15/23 06:29 CRAMP ciprofloxacin AdvReac Unknown STOAMCH Verified 12/15/23 06:29 UPSET Home Medications Medication Instructions Recorded Confirmed Type ascorbic acid (vitamin C) 500 mg 500 mg PO DAILY 09/16/21 12/15/23 History tablet naproxen sodium 220 mg capsule 220 mg PO BID PRN Pain 09/16/21 12/15/23 History (Aleve) turmeric 400 mg capsule 400 mg PO DAILY 09/16/21 12/15/23 History acetaminophen 500 mg tablet 1,000 mg PO Q6H PRN Pain 12/04/21 12/15/23 History acyclovir 400 mg tablet 400 mg PO BID HAD SHINGLES IN EYE 12/04/21 12/15/23 History nitroglycerin 0.4 mg sublingual 0.4 mg sublingual Q5-15M PRN Chest 12/04/21 12/10/23 History tablet Pain albuterol sulfate 90 mcg/actuation 1 - 2 puff inhalation Q4-6H PRN 02/04/22 12/15/23 Rx aerosol inhaler shortness of breath or wheezing #8.5 grams hydrocortisone 2.5 % topical cream 1 applic RECTAL DAILY PRN 10/15/22 12/10/23 Rx with perineal applicator hemorrhoids #30 grams (Proctozone-HC) aspirin 81 mg tablet,delayed 81 mg PO DAILY 02/10/23 12/15/23 History release atorvastatin 40 mg tablet 40 mg PO HS 02/10/23 12/15/23 History artificial tears solution eye drops 1 drp ophthalmic (eye) DAILY PRN 08/31/23 12/15/23 History Dry Eye(S) cyanocobalamin (vitamin B-12) 500 500 mcg PO DAILY 08/31/23 12/15/23 History mcg tablet docusate sodium 50 mg capsule 50 mg PO PRN PRN Constipation 08/31/23 12/10/23 History (Stool Softener) zinc 50 mg tablet 50 mg PO DAILY 08/31/23 12/15/23 History diltiazem HCl 120 mg 120 mg PO HS #90 caps 09/25/23 12/15/23 Rx capsule,extended release 24 hr gabapentin 300 mg capsule 300 mg PO BID #180 caps 10/09/23 12/15/23 Rx omeprazole 40 mg capsule,delayed 40 mg PO DAILY #90 caps 10/09/23 12/15/23 Rx release Trelegy Ellipta 100 mcg-62.5 1 inh inhalation Q24H #60 ea 11/04/23 12/15/23 Rx mcg-25 mcg powder for inhalation (xyasrmonwqh-ihbuisyfq-gnjerofj) oxybutynin chloride 2.5 mg tablet 2.5 mg PO DAILY #90 tabs 11/20/23 12/15/23 Rx levothyroxine 25 mcg tablet See Rx Instructions .Route 12/07/23 12/15/23 Rx .COMPLEX #90 tabs sertraline 25 mg tablet 12.5 mg PO QAM 12/10/23 12/15/23 History Patient hx anesthesia problems: post op nausea/vomiting and other (Slow to awaken after GA in the past. ) Family hx anesthesia problems: none Results Review: All pre-operative results and documents have been reviewed as part of the pre-operative evaluation. [facility] Past Medical History Medical History Arthritis Essential (primary) hypertension Gastric erosion determined by endoscopy Gastro-esophageal reflux disease without esophagitis History of stress test (~2018) Right shoulder pain Surgical History Surgical History H/O: hysterectomy History of hip surgery (~1999) left hip History of hip surgery (~2011) right hip History of knee replacement left knee replaced 200 right knee replaced 2019 History of sinus surgery Hx of cholecystectomy Family History Family History (Reviewed 12/15/23 @ 06:57 by Salty Yee
[2023-12-15] MEDS: ACETAMINOPHEN 500 MG TABLET 1000 MG PO ×4 (06:50→23:26)
[2023-12-15] MEDS: LACTATED RINGERS 1,000 ML 30 ML IV CONT (07:05)
[2023-12-15] MEDS: TRANEXAMIC ACID 1,000MG/ISO100 1,000 MG/100 ML BAG 200 MG IVPB (07:05)
--- NOTE | 2023-12-15 07:07 | WPDHPUPDATE1 ---
History and Physical Update Update Date/Time: 12/15/23 07:07 History and Physical has been reviewed, including an updated exam of the patient. There are NO changes in the patient's condition. Risks, benefits, and alternatives have been discussed and questions answered. Patient agrees to proceed with procedure.
--- NOTE | 2023-12-15 07:36 | WPDANESPNB ---
Anes - Peripheral Nerve Block Date/Time: 12/15/23 07:36 I have discussed with the patient/family/POA the placement of a peripheral nerve block for post-operative pain management, including associated risks, benefits, complications, and side effects. Alternative methods of post-operative analgesia were detailed. Questions were solicited and answers provided to the satisfaction of the patient/family/POA. Time-Out: A pre-procedural Time-Out was completed immediately before starting the procedure and confirmed: Patient Identification, Site, Procedure, Patient Position and the Availability of Requisite Equipment. Clinical Indications: Acute post-operative pain management requested by the operative surgeon. Nerve Block Insertion Note Anes-nerve block: interscalene left Patient position: supine Skin prep: chlorhexidine Needle: 22 gauge, stimulating, insulated echogenic needle. Needle length: 50 mm Technique: ultrasound Injectate: other (Bupiv 0.5%, 15 mls. ) Observations: tolerated well Complications: none Procedure start time:: 725 Procedure end time:: 0
[2023-12-15] MEDS: ceFAZolin 2 GM/D5W 50 ML 2 GM/50 ML BAG IVPB ×3 (07:37→23:26)
[2023-12-15] MEDS: SODIUM CHLORIDE 0.9% IV 37.7 ML, MORPHINE SULFATE INJ (*CRX) 2 MG, ROPivacaine HCL 1% 2... INFILTRATE (09:02)
[2023-12-15] MEDS: VANCOMYCIN HCL 1,000 MG VIAL 1000 MG TOPICAL (09:03)
--- NOTE | 2023-12-15 09:26 | SUR.OPER ---
Shoulder immobilizer sent with patient per Dr. Collier
[2023-12-15] MEDS: fentaNYL CITRATE INJ (*CRX) 100 MCG/2 ML VIAL 25 MCG IV PUSH ×4 (10:07→10:30)
--- NOTE | 2023-12-15 10:17 | W.PM.PROC2 ---
Procedure Note - Detailed Date of Procedure 12/15/23 Pre-op Diagnosis Prim OA Lt Shoulder Post-op Diagnosis Same Procedure Performed Reverse total shoulder arthroplasty, left Surgeon Aditya Collier MD Quality Assurance Manager Randi Carrera PA-C Anesthesia General and Regional (Interscalene block.) Findings Good bone quality. 10 degree superior inclination corrected with the 10 degree augmented base plate. Description of Procedure The patient was given an interscalene block in the preoperative area. Preoperative antibiotics were given. The patient was transferred to the operating room and a general anesthetic was administered. The beach chair position was used at 45 degrees. All bony prominences were padded. The head was carefully stabilized on the [facility] inspector and adjuster golf club head. A sterile prep and drape was performed in the usual manner with ChloraPrep. A longitudinal incision was created at the anterior shoulder just lateral to the deltopectoral interval. Hydrogen peroxide was placed on the incision and then rinsed after one minute. Careful dissection was performed to expose the interval and protect the cephalic vein. The vein was retracted medially. The upper border of the pectoralis was released. Anterior circumflex vessel branches were suture ligated. The biceps was tenodesed. A subscapularis tenotomy was performed. The inferior capsule was released, exposing the humeral head. Osteophytes were removed. Care was taken to stay on bone to protect the axillary nerve. The anatomic head cut was taken with the oscillating saw. The guide pin was placed, central drilling performed, and the broach trial inserted. The neck anteversion and inclination were carefully assessed. The cut protector was placed, and attention was turned to the glenoid. Retractors were placed. Releases were carried out for exposure. The subscapularis was mobilized, the inferior capsule and long head of triceps released, and the superior and middle glenohumeral ligaments released as well. Labral tissue was resected as needed. The sizing template was used to assess the baseplate position low on the glenoid. A guide pin was placed. Minimal reaming was used to accomplish a flat surface without violating the subchondral bone. Version was corrected according to preoperative templating. The boss was drilled, and the real component was impacted into position. Supplemental locking screws were placed centrally, superiorly, and inferiorly. The glenosphere was impacted into the taper. The proximal humerus was reamed for the inset component. The humeral components were trialed. The real humeral stem, tray, and insert were impacted into position. The shoulder was copiously irrigated periodically with pulsatile lavage. The shoulder was reduced and stability confirmed. 1 gram of Vancomycin powder was placed in the joint. The biceps tenodesis was incorporated with the pectoralis tendon repair. The subscapularis tenotomy was repaired with 2. Ethibond suture. The deltopectoral space was reapproximated with number 1 Vicryl. The remaining tissue was closed with 0 Quill and 2-0 Quill running suture and steri-strips. A sterile silver occlusive dressing and shoulder immobilizer were placed. The patient was transferred to the recovery room. Physician assistant winemaker, Randi Carrera PA-C, required for surgery; including patient positioning, draping, tissue retraction, maintaining instrument position, wound closure, and dressing placement. Implants Shoulder Innovations reverse TSA size 0 stem. +0 polyethylene insert. 10 augmented baseplate. 33 + 3 mm glenosphere. Estimated Blood Loss 150 Drains No Pathology None sent Complications No immediate complications Condition Stable Disposition PACU [facility] Billing Surgery - Charge Forward: Surgery Billing
--- NOTE | 2023-12-15 11:30 | ADMGEN ---
This patient, Marion Camarena, was admitted to [facility] Surg Room 303-01. Patient/family oriented to hospital policies and general routines including ID bracelet, bed and alarms, visiting hours, pain management, procedures, bathroom and other care routines, personal items, smoking policy, room service/diet, and visiting hours. Information on how to activate the Rapid Response Team has been discussed. Patient/Family are encouraged to report perceived risks to care and to ask questions if they do not understand what they are told or what they should do.
[2023-12-15] MEDS: SODIUM CHLORIDE 0.9% IV 1,000 ML 125 ML IV CONT (12:02)
[2023-12-15] MEDS: IBUPROFEN IV 800 MG/200 ML 800 MG/200 ML BAG 400 MG IVPB (14:40)
--- NOTE | 2023-12-15 14:58 | PM.IMCN ---
Assessment and Plan Assessment and plan (1) Orthopedic aftercare for joint replacement: Code(s): Z47.1 - Aftercare following joint replacement surgery Status: Acute (2) Urinary incontinence: Code(s): R32 - Unspecified urinary incontinence Status: Acute (3) Asthma: Qualifiers: Asthma severity: unspecified severity Asthma persistence: unspecified Asthma complication type: unspecified Qualified Code(s): J45.909 - Unspecified asthma, uncomplicated Code(s): J45.909 - Unspecified asthma, uncomplicated Status: Acute Plan 88-year-old female with a PMH arthritis, essential hypertension, hyperlipidemia, peripheral artery disease, aortic insufficiency (f/u with Dr. Diaz), GERD, asthma, emphysema, pulmonary hypertension, herpes zoster ophthalmicus who is postop day 0 reverse total left shoulder arthroplasty. Hospitalist team has been consulted for medical management. Patient evaluated postop in room 303 with only complaint of pain at the left shoulder. Denies any shortness of breath or chest pain. --- Patient is doing well postop. Continue therapy and recommendations from Orthopedic surgery. However she is on oxycodone and Dilaudid p.r.n along with Benadryl and cyclobenzaprine p.r.n.. She takes oxybutynin and gabapentin at home and she has a history of asthma emphysema and pulmonary hypertension. I have discontinued Benadryl and cyclobenzaprine as they are high risk in an elderly female such as her combined with the other medications. Naloxone has been ordered already. Use narcotics and sedative judiciously. I have also added end-tidal CO2. Discontinue prednisone as she did not take that at home. FEN: Saline lock IV. Heart healthy diet GI prophylaxis: Continue famotidine DVT prophylaxis: SCDs Lines: Peripheral IV Code Status: Full code Dispo: Stable. HPI Date of Consult Consult date: 12/15/23 Requesting Physician: Aditya Collier MD Primary Care Provider: Peewee Muir DO Consult Narrative Reason for consult: Medical management Narrative: 88-year-old female with a PMH arthritis, essential hypertension, hyperlipidemia, peripheral artery disease, aortic insufficiency (f/u with Dr. Diaz), GERD, asthma, emphysema, pulmonary hypertension, herpes zoster ophthalmicus who is postop day 0 reverse total left shoulder arthroplasty. Hospitalist team has been consulted for medical management. Patient evaluated postop in room 303 with only complaint of pain at the left shoulder. Denies any shortness of breath or chest pain. Review of Systems Review of Systems: All systems reviewed & are unremarkable except as noted in HPI and below (Subjective) [facility] Past Medical History Medical History Arthritis Essential (primary) hypertension Gastric erosion determined by endoscopy Gastro-esophageal reflux disease without esophagitis History of stress test (~2018) Right shoulder pain Surgical History Surgical History H/O: hysterectomy History of hip surgery (~1999) left hip History of hip surgery (~2011) right hip History of knee replacement left knee replaced 200 right knee replaced 2019 History of sinus surgery Hx of cholecystectomy Family History Family History Mother Cerebrovascular accident, Onset Age: 86 Patient's mother is Father Diabetes mellitus Hypertension Heart disease Sibling Cancer Heart disease Cerebrovascular accident Other Cancer Grandparent Cancer Other Acute myocardial infarction Social History Social History Smoking status: Never smoker Second hand tobacco smoke exposure: No Alcohol intake: never Alcohol use details: 1 drink a month Substance use:
[2023-12-15] MEDS: GABAPENTIN 300 MG CAPSULE PO (17:21)
[2023-12-15] MEDS: SENNA/DOCUSATE SODIUM TABLET 2 TAB PO (17:21)
[2023-12-15] MEDS: ACYCLOVIR 400 MG TABLET PO (17:21)
[2023-12-15] MEDS: dilTIAZem HCL CD 120 MG CAP.24HR PO (20:48)
[2023-12-15] MEDS: PANTOPRAZOLE 40 MG TABLET PO (20:48)
[2023-12-15] MEDS: ATORVASTATIN 40 MG TABLET PO (20:48)
[2023-12-15] MEDS: FAMOTIDINE 20 MG TABLET PO (20:48)
[2023-12-15] MEDS: oxyCODONE HCL (*CRX) 2.5 MG TAB IR PO (20:48)
--- NOTE | ~2023-12-16 | XR_ITS ---
EXAMINATION: XR shoulder LT min 2V DATE: 12/15/2023 11:31 INDICATION: Left shoulder arthroplasty. Postop. TECHNIQUE: 2 views of left shoulder were obtained. COMPARISON: Left shoulder radiographs 07/01/2023 FINDINGS: There is a reverse lbin-[id number]-paukrh total left shoulder arthroplasty in near-anatomic alignm ent. No fracture. There is severe osteoarthritis of acromioclavicular joint. There is gas in the soft tissues, consistent with recent surgery. IMPRESSION: 1. Total left shoulder arthroplasty in near-anatomic alignment. Reviewed, dictated and finalized at location E.
[2023-12-16] MEDS: ACETAMINOPHEN 500 MG TABLET 1000 MG PO ×3 (05:58→17:22)
[2023-12-16] MEDS: ceFAZolin 2 GM/D5W 50 ML 2 GM/50 ML BAG IVPB (05:59)
[2023-12-16] MEDS: LEVOTHYROXINE SODIUM 25 MCG TABLET BY MOUTH (05:59)
[2023-12-16] MEDS: oxyCODONE HCL (*CRX) 2.5 MG TAB IR PO ×3 (05:59→20:57)
[2023-12-16 06:02] VITALS: PULSE 93; RESP 19; O2SAT 92
[2023-12-16 06:22] VITALS: BP 153/69; PULSE 99; RESP 16; TEMP 36.2; O2SAT 94
[2023-12-16 07:09] LABS: Basophils Percent Auto 0.2 % (0.2-1.2); Hematocrit 41.9 % (37.0-47.0); Hemoglobin 13.8 g/dL (12.0-15.0); Immature Granulocyte Absolute 0.03 K/mm3 (0.00-0.031); Immature Granulocyte Percent A 0.3 % (0-0.5); Lymphocytes Absolute Auto 1.34 K/mm3 (0.9-3.2); Lymphocytes Percent Auto 11.3 % (18.3-44.2); Mean Corpuscular HGB Conc 32.9 g/dl (32-36); Mean Corpuscular Hemoglobin 30.8 pg (26-34); Mean Corpuscular Volume 93.5 fl (80-100); Mean Platelet Volume 9.7 fl (7.4-10.4); Monocytes Absolute Auto 1.2 K/mm3 (0.1-0.6); Neutrophils Absolute Auto 9.3 K/mm3 (1.3-6.7); Neutrophils Percent Auto 78.2 % (45.5-73.1); Platelet Count Result 231 k/mm3 (150-375); Red Blood Count 4.48 M/mm3 (4.2-5.4); Red Cell Distribution Width 13.2 % (11.5-14.5); White Blood Count 11.9 K/mm3 (4.5-10.0)
[2023-12-16] MEDS: ONDANSETRON INJ 4 MG/2 ML VIAL IV PUSH (07:19)
[2023-12-16 07:23] LABS: Anion Gap 6 mmol/L (4-12); Blood Urea Nitrogen 14 mg/dL (7-17); Carbon Dioxide 24 mmol/L (22-30); Chloride 105 mmol/L (98-107); Estimated CRCL calculation 69 ml/min; Estimated Glomerular Filt Rate > 60; Glucose 116 mg/dL (65-110); Magnesium 2.2 mg/dL (1.6-2.3); Potassium 4.1 mmol/L (3.4-5.0); Sodium 135 mmol/L (137-145)
[2023-12-16] MEDS: FLUTICASONE/UMECLIDIN/VILANTER 100-62.5-25 MCG ELLIPTA 1 PUFF INHALATION (08:03)
[2023-12-16 08:04] VITALS: PULSE 84; RESP 12; RESP 20; O2SAT 94
--- NOTE | 2023-12-16 08:04 | P.PNAN_ITS ---
Anes - Prog Note Post-Op Date/Time: 12/16/23 08:04 Cardiovascular status: normal Respiratory status: normal Airway patency: baseline Mental status: baseline Post-Op hydration status: normal Vital Signs: Last Vital Signs Temp 36.2 C L 12/16/23 06:22 Pulse 99 12/16/23 06:22 Resp 16 12/16/23 06:22 BP 153/69 H 12/16/23 06:22 Pulse Ox 94 12/16/23 06:22 O2 Del Method Nasal Cannula 12/16/23 06:02 O2 Flow Rate 1 12/16/23 06:02 Pain Score (VAS): 0 I/O: Intake & Output 12/15/23 12/16/23 12/16/23 23:59 07:59 15:59 Intake Total 340 50 Balance 340 50 Laboratory Tests 12/16/23 06:59 12/16/23 06:59 12/16/23 06:59 WBC 11.9 H RBC 4.48 Hgb 13.8 Hct 41.9 MCV 93.5 MCH 30.8 MCHC 32.9 RDW 13.2 Plt Count 231 MPV 9.7 Immature Gran % (Auto) 0.3 Neut % (Auto) 78.2 H Lymph % (Auto) 11.3 L Thayer % (Auto) 10.0 H Eos % (Auto) 0.0 Baso % (Auto) 0.2 Lymph # (Auto) 1.34 Thayer # (Auto) 1.2 H Eos # (Auto) 0.0 Baso # (Auto) 0.0 Abs Immat Gran (auto) 0.03 Absolute Neuts (auto) 9.3 H Absolute Nucleated RBC 0.000 Nucleated RBC % 0.0 Sodium 135 L Potassium 4.1 Chloride 105 Carbon Dioxide 24 Anion Gap 6 BUN 14 Creatinine 0.50 L Estim Creat Clear Calc 69 Estimated GFR > 60 Glucose 116 H Calcium 9.0 Magnesium 2.2 Post-procedural complaints: none Patient Feedback: Patient satisfied with anesthetic care.
[2023-12-16 09:35] VITALS: O2SAT 96
[2023-12-16] MEDS: SENNA/DOCUSATE SODIUM TABLET 2 TAB PO ×2 (09:35→17:22)
[2023-12-16] MEDS: polyethylene glycoL 3350 17 GM POWD.PACK PO (09:36)
[2023-12-16] MEDS: GABAPENTIN 300 MG CAPSULE PO ×2 (09:36→17:22)
[2023-12-16] MEDS: ASPIRIN 81 MG ENTERIC TABLET PO (09:36)
[2023-12-16] MEDS: oxyBUTYnin CHLORIDE 2.5 MG TAB PO (09:36)
[2023-12-16] MEDS: PANTOPRAZOLE 40 MG TABLET PO ×2 (09:36→20:56)
[2023-12-16] MEDS: SERTRALINE HCL 12.5 MG TABLET PO (09:36)
[2023-12-16] MEDS: ACYCLOVIR 400 MG TABLET PO ×2 (09:36→17:25)
[2023-12-16] MEDS: FAMOTIDINE 20 MG TABLET PO ×2 (09:37→20:56)
--- NOTE | 2023-12-16 12:32 | PM.DS ---
DS: Admitting Diagnosis Discharge Date 12/16/23 Admitting Diagnosis Glenohumeral joint arthritis. DS: Discharge Diagnosis Discharge Diagnosis (1) Status post reverse total arthroplasty of left shoulder: Code(s): Z96.612 - Presence of left artificial shoulder joint Status: Acute Assessment and Plan: Postop day 1: Left reverse total shoulder arthroplasty. Patient tolerated procedure well. No complications. Pain manageable with pain medication. No numbness or tingling. We had a lengthy discussion regarding postoperative wound care, limitations, expectations, and exercises. Patient shows good understanding. She has had initial physical therapy and is tolerating it well. DVT prophylaxis: 81 mg baby aspirin b.i.d. for 14 days. Pain medication: Percocet. prednisone. Discussed limiting pain medication if possible. Patient has followup appointment with Dr. Collier in 3 weeks. DS: Summary Hospital Course Hospital Course: Patient has had initial PT/OT and tolerating it well. Status at Discharge Functional status at discharge: independent ambulation Overall status at discharge: patient is progressing back to baseline Time Spent with Patient Time attestation: Total time spent providing and/or coordinating discharge services: Exam Narrative: Normal weight 88 y/o Female. Resting comfortably in chair. Wearing sling. Dressing dry and intact with no drainage. Moderate swelling. Moderate ecchymosis. No erythema. No hematoma. Range of motion limited due to pain. Calf nontender. Neurologic status intact. No varicosities. Distal pulses palpable. Deltoid fires. DS: Data Data Completed and Pending Labs on day of discharge: Labs from last 24 hours 12/16/23 06:59 WBC 11.9 H RBC 4.48 Hgb 13.8 Hct 41.9 MCV 93.5 MCH 30.8 MCHC 32.9 RDW 13.2 Plt Count 231 MPV 9.7 Immature Gran % (Auto) 0.3 Neut % (Auto) 78.2 H Lymph % (Auto) 11.3 L [place] % (Auto) 10.0 H Eos % (Auto) 0.0 Baso % (Auto) 0.2 Lymph # (Auto) 1.34 [place] # (Auto) 1.2 H Eos # (Auto) 0.0 Baso # (Auto) 0.0 Abs Immat Gran (auto) 0.03 Absolute Neuts (auto) 9.3 H Absolute Nucleated RBC 0.000 Nucleated RBC % 0.0 Sodium 135 L Potassium 4.1 Chloride 105 Carbon Dioxide 24 Anion Gap 6 BUN 14 Creatinine 0.50 L Estim Creat Clear Calc 69 Estimated GFR > 60 Glucose 116 H Calcium 9.0 Magnesium 2.2 Discharge Plan Discharge Patient Disposition: Home, Self-Care Discharge Instructions: See green instruction sheets Stand Alone Forms: General Discharge Instructions Follow-up/Referrals: Randi Carrera PA [Physician Block Hand] - Discharge Medications: New prednisone 5 mg tablet 5 mg PO DAILY 21 Days Qty: 21 0RF oxycodone-acetaminophen 5-325 mg tablet 1 - 2 tablet PO Q4-6H MDD 6 PRN (Reason: pain) Qty: 30 0RF Continued albuterol sulfate 90 mcg/actuation HFA aerosol inhaler 1 - 2 puff inhalation Q4-6H PRN (Reason: shortness of breath or wheezing) Qty: 8.5 2RF ascorbic acid (vitamin C) 500 mg tablet 500 mg PO DAILY turmeric 400 mg capsule 400 mg PO DAILY naproxen sodium [Aleve] 220 mg capsule 220 mg PO BID PRN (Reason: Pain) hydrocortisone [Proctozone-HC] 2.5 % cream with perineal applicator 1 applic RECTAL DAILY PRN (Reason: hemorrhoids) Qty: 30 1RF atorvastatin 40 mg tablet 40 mg PO HS aspirin 81 mg tablet,delayed release (DR/EC) 81 mg PO DAILY acyclovir 400 mg Tablet 400 mg PO BID acetaminophen 500 mg Tablet 1,000 mg PO Q6H PRN (Reason: Pain) nitroglycerin 0.4 mg Tablet, Sublingual 0.4 mg SUBLINGUAL Q5-15M PRN (Reason: Chest Pain) artificial tears solution Drops 1 drp OPHTHALMIC (EYE) DAILY PRN (Reason: Dry Eye(S)) cyanocobalamin (vitamin B-12) 500 mcg Tablet 500 mcg PO DAILY Stool Softener 50 mg Capsule 50 mg PO PRN PRN (Reason: Constipation) zinc 50 mg Tablet
[2023-12-16 13:04] VITALS: BP 143/69; PULSE 94; RESP 16; TEMP 36.7; O2SAT 92
--- NOTE | 2023-12-16 16:17 | PM.PNORT ---
Progress Note: A&P Assessment and Plan (1) Status post reverse total arthroplasty of left shoulder: Code(s): Z96.612 - Presence of left artificial shoulder joint Status: Acute Assessment and Plan: Patient had a rough time with formal physical therapy. She typically uses a walker at home. Per the nursing and therapy staff, she is unsafe to return home today and will benefit from continued therapy. No other changes. Possible discharge home tomorrow. She does have a very supportive family and lots of help at home. Subjective Subjective Date/Time Seen: 12/16/23 16:17 Interval history: Patient had a rough time with formal physical therapy. She typically uses a walker at home. Per the nursing and therapy staff, she is unsafe to return home today and will benefit from continued therapy. No other changes. Review of Systems Review of Systems: All systems reviewed & are unremarkable except as noted in HPI and below Exam Narrative: Normal weight 88 y/o Female. Resting comfortably in chair. Wearing sling.? Dressing dry and intact with no drainage.? Moderate swelling.? Moderate ecchymosis. No erythema. No hematoma. Range of motion limited due to pain. Calf nontender.? Neurologic status intact. No varicosities. Distal pulses palpable. Deltoid fires. Objective Data Vital Signs Vital Signs: Vital Signs - 24 hr 12/15/23 17:50 12/15/23 20:47 12/15/23 21:00 Temperature 97.7 F Pulse Rate 98 93 97 Respiratory Rate 20 16 20 Blood Pressure 140/65 Pulse Oximetry 92 93 94 Oxygen Delivery Room Air Room Air Oxygen Flow Rate 12/16/23 06:02 12/16/23 06:22 12/16/23 08:04 Temperature 97.1 F L Pulse Rate 93 99 84 Respiratory Rate 19 16 20 Blood Pressure 153/69 H Pulse Oximetry 92 94 94 Oxygen Delivery Nasal Cannula Nasal Cannula Oxygen Flow Rate 1 1 12/16/23 08:04 12/16/23 09:35 12/16/23 13:04 Temperature 98.1 F Pulse Rate 84 94 Respiratory Rate 12 16 Blood Pressure 143/69 H Pulse Oximetry 96 92 Oxygen Delivery Room Air Oxygen Flow Rate Intake/Output Intake/Output: Intake & Output 12/13/23 12/14/23 12/15/23 12/16/23 23:59 23:59 23:59 23:59 Intake Total 740 790 Balance 740 790 Meds/Results Medications: Active Medications Generic Name Dose Route Start Last Admin Trade Name Freq PRN Reason Stop Dose Admin Acetaminophen 1,000 mg 12/15/23 12:00 12/16/23 12:15 Acetaminophen 500 Mg Tablet PO 1,000 mg Q6H JAYLON Administration Acyclovir 400 mg 12/15/23 17:00 12/16/23 09:36 Acyclovir 400 Mg Tablet PO 400 mg BID JAYLON Administration Artificial Tears 1 drop 12/15/23 11:19 Artificial Tears Ophth Soln 15 Ml Bottle EACH EYE DAILY PRN Dry Eye(S) Aspirin 81 mg 12/16/23 09:00 12/16/23 09:36 Aspirin 81 Mg Enteric Tablet PO 81 mg DAILY JAYLON Administration Atorvastatin Calcium 40 mg 12/15/23 21:00 12/15/23 20:48 Atorvastatin 40 Mg Tablet PO 40 mg HS JAYLON Administration Diltiazem HCl 120 mg 12/15/23 21:00 12/15/23 20:48 Diltiazem Hcl Cd 120 Mg Cap.24hr PO 120 mg HS JAYLON Administration Famotidine 20 mg 12/15/23 21:00 12/16/23 09:37 Famotidine 20 Mg Tablet PO 20 mg Q12HR JAYLON Administration Fluticasone/Umeclidinium/Vilanterol 1 puff 12/15/23 12:00 12/16/23 08:03 Fluticasone/Umeclidin/Vilanter 100-62.5-25 Mcg Ellipta INHALATION 1 puff DAILYRT JAYLON Administration Gabapentin 300 mg 12/15/23 17:00 12/16/23 09:36 Gabapentin 300 Mg Capsule PO 300 mg BID JAYLON Administration Hydromorphone HCl 0.5 mg 12/15/23 11:19 Hydromorphone Hcl Inj (*Crx) 1 Mg/Ml Syr IV PUSH Q2H PRN Breakthrough Pain Rated 4-6 or NPO Ibuprofen 800 mg in 200 mls @ 400 mls/hr 12/15/23 11:19 12/15/23 15:10 Caldolor 800 Mg/200 Ml IVPB Infused Q6H PRN Infusion Breakthrough Pain Rated 1-3 or NPO Levothyroxine Sodium 25 mcg 12/16/23 06:30 12/16/23 05:59 Levothyroxine Sodium 25 Mcg
[2023-12-16] MEDS: ATORVASTATIN 40 MG TABLET PO (20:56)
[2023-12-16] MEDS: dilTIAZem HCL CD 120 MG CAP.24HR PO (20:57)
[2023-12-16 21:32] VITALS: BP 144/52; PULSE 86; RESP 16; TEMP 36.4; O2SAT 92
[2023-12-17] MEDS: oxyCODONE HCL (*CRX) 2.5 MG TAB IR PO (02:47)
[2023-12-17 03:24] VITALS: O2SAT 92
[2023-12-17] MEDS: ACETAMINOPHEN 500 MG TABLET 1000 MG PO (06:07)
[2023-12-17] MEDS: LEVOTHYROXINE SODIUM 25 MCG TABLET BY MOUTH (06:07)
[2023-12-17 06:11] VITALS: BP 139/50; PULSE 88; RESP 14; TEMP 36.1; O2SAT 96
[2023-12-17 06:55] VITALS: PULSE 78; RESP 18; O2SAT 91
[2023-12-17] MEDS: FLUTICASONE/UMECLIDIN/VILANTER 100-62.5-25 MCG ELLIPTA 1 PUFF INHALATION (06:58)
--- NOTE | 2023-12-17 07:39 | PM.IMPN ---
Progress Note: A&P Assessment and Plan (1) Orthopedic aftercare for joint replacement: Code(s): Z47.1 - Aftercare following joint replacement surgery Status: Acute Assessment and Plan: Patient presented to hospital for elective total left shoulder replacement with Dr. Collier on 02/14/2024 Currently arm is in a sling resting on a pillow Patient does have pain which she rates 7/10 Pain medications on board Currently stable for discharge per primary team PT and OT following (2) Urinary incontinence: Code(s): R32 - Unspecified urinary incontinence Status: Acute Assessment and Plan: Stable No current complaints of urinary tract infection including pain, burning, urgency, frequency Berta care education provided (3) Asthma: Qualifiers: Asthma severity: unspecified severity Asthma persistence: unspecified Asthma complication type: unspecified Qualified Code(s): J45.909 - Unspecified asthma, uncomplicated Code(s): J45.909 - Unspecified asthma, uncomplicated Status: Acute Assessment and Plan: Continue home medications No acute exacerbation Stable on room air Time Spent With Patient Time: 38 minutes Time with patient: Greater than 35 minutes Subjective Date/time seen: 12/17/23 07:39 Interval history: Patient is a 88-year-old female with a past medical history of OA, hypertension, hyperlipidemia, PE, GERD, asthma, emphysema who underwent an elective total left shoulder replacement with Dr. Collier 12/15/2023. Currently patient is doing okay.,, vomiting, diarrhea is having some significant pain especially to the left shoulder. She did try to elevate arm however is still having some pain. Patient will her request. Currently labs and vital signs appear to be stable. At this point patient is stable for discharge per the hospitalist team. Review of Systems Review of Systems: All systems reviewed & are unremarkable except as noted in HPI and below Exam Narrative: General: well-nourished, well-appearing 88-year-old female, sitting up in bed, uncomfortable Neuro: awake, alert and oriented x4, speech clear, no focal neuro deficits noted HEENMT: normocephalic, atraumatic, EOMI, sclerae anicteric, moist oral mucosa Respiratory: Clear to auscultation bilaterally without crackles, rhonchi or wheezes, nonlabored breathing Cardio: regular rate, regular rhythm with S1-S2 Abdomen: nondistended, normoactive bowel sounds, soft, nontender to palpation Extremities: no edema, erythema, 2+ pulses, left upper extremity with sling pain with palpations Skin: no rashes or lesions, warm and dry Psych: appropriate mood and affect, judgment and insight intact Objective Data Vital Signs Vital Signs: Vital Signs - 24 hr 12/16/23 08:04 12/16/23 08:04 12/16/23 09:35 Temperature Pulse Rate 84 84 Respiratory Rate 20 12 Blood Pressure Pulse Oximetry 94 96 Oxygen Delivery Nasal Cannula Room Air Oxygen Flow Rate 1 12/16/23 13:04 12/16/23 21:32 12/17/23 03:24 Temperature 98.1 F 97.5 F L Pulse Rate 94 86 Respiratory Rate 16 16 Blood Pressure 143/69 H 144/52 H Pulse Oximetry 92 92 92 Oxygen Delivery Room Air Oxygen Flow Rate 12/17/23 06:11 12/17/23 06:55 12/17/23 06:55 Temperature 97.0 F L Pulse Rate 88 78 78 Respiratory Rate 14 18 18 Blood Pressure 139/50 L Pulse Oximetry 96 91 Oxygen Delivery Room Air Oxygen Flow Rate Intake/Output Intake/Output: Intake & Output 12/14/23 12/15/23 12/16/23 12/17/23 23:59 23:59 23:59 23:59 Intake Total 740 1030 Balance 740 1030 Meds/Results Medications: Active Medications Generic Name Dose Route Start Last Admin Trade Name Freq PRN Reason Stop Dose Admin Acetaminophen 1,000 mg 12/15/23 12:00 12/17/23 06:07 Acetaminophen 500 Mg Tablet PO 1,000 mg Q6H JAYLON Administration Acyclovir 400 mg 12/15/23 17:00 12/16/23 17:25
[2023-12-17] MEDS: oxyCODONE HCL (*CRX) 5 MG TAB IR PO ×2 (07:43→13:07)
[2023-12-17] MEDS: SENNA/DOCUSATE SODIUM TABLET 2 TAB PO (09:08)
[2023-12-17] MEDS: ASPIRIN 81 MG ENTERIC TABLET PO (09:08)
[2023-12-17] MEDS: FAMOTIDINE 20 MG TABLET PO (09:08)
[2023-12-17] MEDS: ACYCLOVIR 400 MG TABLET PO (09:08)
[2023-12-17] MEDS: PANTOPRAZOLE 40 MG TABLET PO (09:09)
[2023-12-17] MEDS: oxyBUTYnin CHLORIDE 2.5 MG TAB PO (09:09)
[2023-12-17] MEDS: GABAPENTIN 300 MG CAPSULE PO (09:09)
[2023-12-17] MEDS: polyethylene glycoL 3350 17 GM POWD.PACK PO (09:09)
[2023-12-17] MEDS: SERTRALINE HCL 12.5 MG TABLET PO (09:09)
--- NOTE | 2023-12-17 10:28 | PM.DS ---
DS: Admitting Diagnosis Discharge Date 12/17/23 Admitting Diagnosis Glenohumeral joint arthritis. DS: Discharge Diagnosis Discharge Diagnosis (1) Status post reverse total arthroplasty of left shoulder: Code(s): Z96.612 - Presence of left artificial shoulder joint Status: Acute Assessment and Plan: Postop day 3: Left reverse total shoulder arthroplasty. Patient tolerated procedure well. No complications. Patient did have issues with ambulating and formal physical therapy on POD #1. It was determined by formal physical therapy that she was not yet safe to return home. She is doing much better with therapy today and has been cleared to return home with home health. She has very supportive family who will be helping her. Pain manageable with pain medication. No numbness or tingling. We had a lengthy discussion regarding postoperative wound care, limitations, expectations, and exercises. Patient shows good understanding. She has had initial physical therapy and is tolerating it well. DVT prophylaxis: 81 mg baby aspirin b.i.d. for 14 days. Pain medication: Percocet. prednisone. Discussed limiting pain medication if possible. Patient has follow up appointment with Dr. Collier in 3 weeks. DS: Summary Hospital Course Hospital Course: Patient has had initial PT/OT. She did not tolerate therapy well on POD #1. She required another day of therapy and did much better and is safe to return home on POD #2. Time Spent with Patient Time attestation: Total time spent providing and/or coordinating discharge services: Exam Narrative: Normal weight 88 y/o Female. Resting comfortably in chair. Wearing sling.? Dressing dry and intact with no drainage.? Moderate swelling.? Moderate ecchymosis. No erythema. No hematoma. Range of motion limited due to pain. Calf nontender.? Neurologic status intact. No varicosities. Distal pulses palpable. Deltoid fires. Discharge Plan Discharge Attending physician on discharge: Aditya Collier Consulting providers: Bhakti Wilcox Discharging Clinician: Randi Carrera Anticipated Discharge Date/Time: 12/17/23 10:27 Patient Disposition: Home Health Service Activity: may shower Diet: as tolerated Wound Care Instructions: follow printed instructions Discharge Instructions: See green instruction sheets Per Care Coordination Patient has been arranged to have [facility] for RN, PT, OT [phone] RN please fax completed discharge instructions to [phone] Patient Instructions: Antibiotic Form Stand Alone Forms: General Discharge Information, General Discharge Instructions Follow-up/Referrals: Randi Carrera PA [Physician Commission Broker] - Discharge Medications: New prednisone 5 mg tablet 5 mg PO DAILY 21 Days Qty: 21 0RF oxycodone-acetaminophen 5-325 mg tablet 1 - 2 tablet PO Q4-6H MDD 6 PRN (Reason: pain) Qty: 30 0RF Continued albuterol sulfate 90 mcg/actuation HFA aerosol inhaler 1 - 2 puff inhalation Q4-6H PRN (Reason: shortness of breath or wheezing) Qty: 8.5 2RF ascorbic acid (vitamin C) 500 mg tablet 500 mg PO DAILY turmeric 400 mg capsule 400 mg PO DAILY naproxen sodium [Aleve] 220 mg capsule 220 mg PO BID PRN (Reason: Pain) hydrocortisone [Proctozone-HC] 2.5 % cream with perineal applicator 1 applic RECTAL DAILY PRN (Reason: hemorrhoids) Qty: 30 1RF atorvastatin 40 mg tablet 40 mg PO HS aspirin 81 mg tablet,delayed release (DR/EC) 81 mg PO DAILY acyclovir 400 mg Tablet 400 mg PO BID acetaminophen 500 mg Tablet 1,000 mg PO Q6H PRN (Reason: Pain) nitroglycerin 0.4 mg Tablet, Sublingual 0.4 mg SUBLINGUAL Q5-15M PRN (Reason: Chest Pain) artificial tears solution Drops 1 drp OPHTHALMIC (EYE) DAILY PRN (Reason: Dry Eye(S)) cyanocobalamin (vitamin B-12) 500 mcg Tablet 500 mcg PO DAILY Stool Softener 50 mg C
--- NOTE | 2023-12-17 11:25 | PCOTNOTE ---
Pt declined to need any Occupational Therapy services completed at this time. Therapist educated pt on importance of therapy participation. Pt expresses that she is ready to go home today with family and is having home health services. Pt reports no questions/concerns at this time and feels prepared for d/c home today.
== END 2023-12-17 13:23 | disposition home health service (06) ==
LOC: ANHSURGERY 15:18 → ANH3MEDSUR 15:18
PROVIDERS: Physician Assistant Surgical; Admitting Provider Orthopaedic Surgery; PCP Internal Medicine; Visit Provider Orthopaedic Surgery
PROC: (CPT 23472; principal; 2023-12-15 07:30)
DX: M19.012 Primary osteoarthritis, left shoulder (principal); G89.18 Other acute postprocedural pain; R32 Unspecified urinary incontinence; J45.909 Unspecified asthma, uncomplicated; J43.9 Emphysema, unspecified; B02.30 Zoster ocular disease, unspecified; R41.3 Other amnesia; I27.20 Pulmonary hypertension, unspecified; I10 Essential (primary) hypertension; I73.9 Peripheral vascular disease, unspecified; I35.1 Nonrheumatic aortic (valve) insufficiency; E78.5 Hyperlipidemia, unspecified; K21.9 Gastro-esophageal reflux disease without esophagitis; Z96.653 Presence of artificial knee joint, bilateral; Z96.643 Presence of artificial hip joint, bilateral; F10.90 Alcohol use, unspecified, uncomplicated; Z79.1 Long term (current) use of non-steroidal anti-inflammatories (NSAID); Z79.51 Long term (current) use of inhaled steroids; Z79.52 Long term (current) use of systemic steroids; Z79.899 Other long term (current) drug therapy
CPT/HCPCS: 23472; 64415; 36415; 73030; 80048; 83735; 85025; 86850; 86900; 86901; 87641; 94640; 97110; 97116; 97161; 97165; 97530; 97535; 97537; A4565; A9270; C1713; C1776; G0378; J0171; J0690; J1100; J1741; J1885; J2270; J2405; J2704; J2795; J3010; J3370; J7030; J7120

== ENCOUNTER 2024-02-12 11:48 | Outpatient (CLI) | payer MEDICARE, SELFPAY ==
--- NOTE | ~2024-02-12 | XR_ITS ---
XR chest 2V 02/12/2024 12:08 Indication: Cough. History of asthma. Procedure: 2 view chest Comparison: 10/01/2018 Findings: Heart size normal. Coarse interstitial infiltrates of the lung bases which may reflect mild edema or atypical pneumonia. No significant effusion. No pneumothorax. There is a left shoulder arth roplasty. Impression: 1: Bibasilar interstitial infiltrates may represent mild edema or atypical pneumonia. Reviewed, dictated and finalized at location B. Impression: 1: Bibasilar interstitial infiltrates may represent mild edema or atypical pneu monia.
[2024-02-12 13:06] LABS: Influenza A QL RT-PCR Negative (Negative); Influenza B QL RT-PCR Negative (Negative); SARS-CoV-2 RNA PCR Negative (Negative)
== END 2024-02-12 11:49 | disposition home or self-care (01) ==
PROVIDERS: PCP Internal Medicine; Visit Provider Nurse Practitioner Family
DX: R05.9 Cough, unspecified (principal); R50.9 Fever, unspecified
CPT/HCPCS: 71046; 87636

== ENCOUNTER 2024-04-11 13:30 | Outpatient (RCR) | payer MEDICARE, SELFPAY ==
[2024-02-02 10:00] VITALS: BP_SYST 55
--- NOTE | 2024-02-02 10:56 | OPREHPOC ---
Outpatient Therapy Plan of Care This is a Multidisciplinary Plan of Care that may contain components documented by all disciplines (PT, OT, and ST.) PT Problem 1 PT Problem #1 Knowledge Deficit PT Goal 1 Goal *indep with HEP Target Visit 10 PT Problem 2 PT Problem #2 Pain PT Goal 1 Goal 1* pt report pain at worst of 4/10 2* self assessment Quick DASH rating of 40% limitation on activity level 3* pt report NO awakening from sleep due to shoulder pain Target Visit 10 PT Problem 3 PT Problem #3 Impaired Strength PT Goal 1 Goal in sitting active L shoulder motion x 5 reps: 1* flexion to 95' 2* abduction 70' 3* ER with elbow at side 30' Target Visit 10
--- NOTE | 2024-02-02 10:56 | PTOPEVAL1 ---
Assessment and note entered by Cesilia Lynch PT Evaluation Information Assessment Status Evaluation Diagnosis s/p L reverse total shoulder replacement Onset 12-15-23 Subjective Information just completed [facility] therapy last week; HEP from [facility] therapy--isometric at doorframe; sitting ER; having pain and have not been doing too much exercises; Activity: use wheeled walker for mobility due to LE neuropathy; R handed; live with , pt is able to do light home tasks, husbands asist with vacuuming; daughter local assist PRN; Reported Pain Level Pain Score Self Report Additional Pain Score Comments pain range in the past few days 3-03/02; lateral shoulder pain and hurts; problems getting shoulder to relax; decrease pain: oxycodone- PRN- not every day, ice increase pain: move shoulder sleep in a lift chair--shoulder pain varies with sleeping, but also have leg pain with sleeping; Assessment PT Clinical Summary Marion is s/p L reverse total shoulder replacement on 12-15-23. She completed [facility] PT last week. She reports pain in her shoulder and has not been good to do the exercises because it hurts too much. Self assessment Quick DASH score of 55% limitation in activty. She is not using a sling and been using her L arm for home tasks and pushing her rollator walker. With the evaluation: L shoulder AROM in sitting/PROM in supine: flexion 55'/ 95' abduction 35'/ 55' ER- elbow at side: 10'/ 20' IR- standing reaching behind back, palm to mid buttock Skilled PT services are indicated for modalities to decrease pain, therapeutic exercises to increase L shoulder ROM and strength with education for posture of shoulder and HEP. Plan of Care Interventions Electrical Stimulation,Hot Pack/Cold Pack,Manual Therapy,Neuro Re-education,Patient/Caregiver Ed
[2024-03-08 11:10] VITALS: BP_SYST 80
--- NOTE | 2024-03-08 12:02 | OPREHPOC ---
Outpatient Therapy Plan of Care This is a Multidisciplinary Plan of Care that may contain components documented by all disciplines (PT, OT, and ST.) PT Problem 1 PT Problem #1 Knowledge Deficit PT Goal 1 Goal *indep with HEP Target Visit 10 Progress Met Comment 03-08-24 progress goal met continue to progress HEP and education PT Goal 2 Target Visit 17 PT Problem 2 PT Problem #2 Pain PT Goal 1 Goal 1* pt report pain at worst of 4/10 2* self assessment Quick DASH rating of 40% limitation on activity level 3* pt report NO awakening from sleep due to shoulder pain Target Visit 10 Progress Partially Met Comment 03-08-24 progress goal 2 met continue with goals 1 &3 revise goal #2 to 20% limitation PT Goal 2 Target Visit 17 PT Problem 3 PT Problem #3 Impaired Strength PT Goal 1 Goal in sitting active L shoulder motion x 5 reps: 1* flexion to 95' 2* abduction 70' 3* ER with elbow at side 30' Target Visit 10 Progress Partially Met Comment 03-08-24 progress goal 3 met; improved with others continue towards 1 & 2; PT Goal 2 Target Visit 17
--- NOTE | 2024-03-08 12:03 | PTOPPROG ---
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 PAIN: range in the past week 2-7/10; increase pain: end of day, lie on L side decrease pain: heating pad; ice after exercises; oxycodone 1x/wk; over the counter PRN with sleeping, difficult to get shoulder comfortable; awaken from sleep 1x/night due to shoulder pain; Assessment PT Clinical Summary Marion has received a total of 9 PT sessions. Compared to the initial evaluation: pain rating at low rating from 3 to 2/10 and worst rating same at 7/10; self assessment functional score with Quick DASH from 55 to 26% limitation in activity level; increase in all L shoulder active and passive ROM except active IR is same; increase strength of L shoulder and reports more use of L arm with home activities. Education for HEP and posture of shoulder. L shoulder ROM: active-sitting/ passive supine stretch: flexion: 95'/ 135' abduction 65'/ 80' ER- reach back of head--fingers to back of head IR- reach behind back- palm to buttock The goals were partially achieved. Continue PT treatment to further increase L shoulder ROM and strength. Plan of Care Interventions Electrical Stimulation,Hot Pack/Cold Pack,Manual Therapy,Neuro Re-education,Patient/Caregiver Education,Therapeutic Activities,Therapeutic Exercise,Ultrasound,Other Other Interventions taping [facility] PT Services Indicated Yes Treatment Frequency and 1-2x/wk for 8 visits Duration These treatments will address the objective and functional deficits as defined above. The patient will be advanced safely and appropriately in order for the patient to progr
--- NOTE | 2024-03-08 12:04 | PCPTNOTE ---
pt was 10 min late for appt today; her daughter had the wrong time on her schedule.
[2024-04-11 13:30] VITALS: BP_SYST 95
--- NOTE | 2024-04-11 14:23 | PTOPDC ---
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 Compared to the last reevaluation: pain rating from to 2-01/31; self assessment functional rating with Quick DASH same at 34%; increase strength and ROM of L shoulder except IR range is same; indep with HEP and reports using L arm with home tasks, without as much pain now. L shoulder ROM: in sitting: active/passive: flexion 100'/ 125'; abduction 80'/ 95'; ER- reaching to back of head, palm to back of head and standing, IR- reaching to behind back, palm to buttock. strength: 5 reps: shoulder flexion to 100', abduction to 80'; elbow flexion/extension with 3# hand weight x 10 reps The goals were partially met. Discharge PT services. She is to continue with her HEP and using L arm as tolerated. Plan of Care PT Services Indicated No
== END 2024-04-11 17:20 | disposition home or self-care (01) ==
LOC: ANHPT 13:30
PROVIDERS: PCP Internal Medicine; Visit Provider Orthopaedic Surgery
DX: Z47.1 Aftercare following joint replacement surgery (principal); Z96.612 Presence of left artificial shoulder joint
CPT/HCPCS: 97014; 97032; 97110; 97140; 97161; 97530; G0283

== ENCOUNTER 2024-04-13 11:35 | Outpatient (CLI) | payer MEDICARE, SELFPAY ==
--- NOTE | ~2024-04-13 | XR_ITS ---
EXAMINATION: XR chest 2V 04/13/2024 11:54 INDICATION: Follow-up pneumonia. Shortness of breath. PROCEDURE: 2 view chest COMPARISON: Comparison to multiple prior studies sequentially, with oldest reviewed study dated 02/2014. FINDINGS: The lungs are clear. The cardiomediastinal silhouette is within normal limits. There are no pleural effusions. There is no pneumothorax suspected. There is a left shoulder arthroplasty. IMPRESSION: 1: NO ACUTE CARDIOPULMONARY DISEASE. Reviewed, dictated and finalized at location B.
== END 2024-04-13 11:36 | disposition home or self-care (01) ==
PROVIDERS: PCP Internal Medicine; Visit Provider Physician Assistant
DX: J18.9 Pneumonia, unspecified organism (principal)
CPT/HCPCS: 71046

== ENCOUNTER 2024-12-13 11:07 | Outpatient (CLI) | payer MEDICARE, SELFPAY ==
--- NOTE | ~2024-12-13 | XR_ITS ---
Left Shoulder Technique: AP and scapular Y views were obtained. Clinical History: Arthroplasty COMPARISON: 07/29/2024 Findings: No fracture or dislocation is seen. Stable reversed glenohumeral joint arthroplasty present . There is minimal AC joint degenerative change. Soft tissues are unremarkable. Impression: Stable arthroplasty. No acute abnormality. Reviewed, dictated and finalized at location . Impression: Stable arthroplasty. No acute abnormality.
== END 2024-12-13 11:08 | disposition home or self-care (01) ==
LOC: MICIMG 11:08
PROVIDERS: PCP Internal Medicine; Visit Provider Orthopaedic Surgery
DX: Z96.612 Presence of left artificial shoulder joint (principal)
CPT/HCPCS: 73030